=== PATIENT | male | born 1950 | race Caucasian/White ===

== ENCOUNTER 2023-09-20 08:36 | Day surgery (SDC) | payer MEDICARE, OTHER ==
[~2023-09-20] VITALS: Ht 175.3 cm; Wt 76.2 kg
[~2023-09-20 08:36] MED LIST: ALPHA LIPOIC A200 MG PO; FISH OIL 1,001000 MG PO; FLOMAX0.4 MG PO; IBLOOD GLUCOSE TEST STRIP 1 EA TEST VI PRN; LACTATED RINGER'S 1,000 ML IV SCH; LIDOCAINE HCL 1% 5 ML SDV INJ ONE; METFORMIN HCL500 MG PO; MIDAZOLAM HCL 5 MG/5 ML VIAL IV PRN; OPTIMAG 125125 MG PO; TENORMIN25 MG PO; VITAMIN D325 MC2 PO; fentaNYL citrate 100 MCG/2 ML VIAL IV PRN
[2023-09-20 08:52] VITALS: BP 173/73
[2023-09-20] MEDS ORDERED: FINASTERIDE5 MG PO (09:06)
[2023-09-20] MEDS ORDERED: fentaNYL citrate 100 MCG/2 ML VIAL ONE (09:29)
[2023-09-20] MEDS ORDERED: MIDAZOLAM HCL 5 MG/5 ML VIAL ONE (09:29)
--- NOTE | 2023-09-20 10:14 | NUR ---
09/20/23 Kori4 Idalia Milton 1008-PATIENT ARRIVED TO PACU ON 2L NC RR EVEN. PATIENT REACTIVE TO VERBAL STIMULI DROWSY LAYING LEFT LATERAL. ORIENTED TO PACU DENIES PAIN OR NAUSEA. ABDOMEN SOFT ENCOURAGED TO PASS GAS. IVF INFUSING
[2023-09-20 11:19] VITALS: BP 153/80
--- NOTE | 2023-09-21 06:20 | OR ---
[facility] [address] [place], [place] [address] Signed DATE OF OPERATION: 09/20/2023 SURGEON: Elton Wild MD PREOPERATIVE DIAGNOSES: 1. Brother with colon cancer, age 66. 2. Positive Cologuard test. 3. Weight loss of 40 pounds over three months. POSTOPERATIVE DIAGNOSES: 1. A 3 mm polyp at 6 cm, rectum. 2. Minimal internal hemorrhoids. PROCEDURE: Colonoscopy with hot biopsy. ESTIMATED BLOOD LOSS: None. INDICATIONS: Jocelyne is a 72-year-old gentleman asked to see me for his initial colonoscopy. He has recently moved to our area. He was in the [facility] in [place], [place]. We have been unable to track down those results. He told me that his brother was diagnosed and of colon cancer at age 66. He said his brother waited quite a late before he presented. Jocelyne had a positive Cologuard test recently. He thinks it is due to his natural antibiotic that he was using at that time, but he has lost at least 40 pounds over three months. Ultrasound of his abdomen in July of this year did show his previous cholecystectomy and an 8 cm left renal cyst. He has some fat in his liver. The CT scan of the chest, abdomen, and pelvis showed some pancreatic atrophy and a stone in the pancreatic duct. It confirmed the left simple renal cyst measuring around 7.7 cm. 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 His prostate gland is little swollen. Nothing unusual in the chest. He said he has no lower GI complaints. He was talking to me about fasting and he uses some type of salt water to cleanse the colon. In the office, I gave him a pamphlet on colonoscopy. We have reviewed the nature of the test. There is risk including, but not limited to gas bloating, crampy abdominal pain, bleeding, perforation requiring surgery, and missed diagnosis. We also reviewed the written instructions for a bowel prep line by line. We had gone through his medications in detail as well. He also understands the need for IV conscious sedation. He had expressed understanding and wished to proceed. Electronically Signed By: ELTON WILD MD 09/21/23 0620 PATIENT NAME: JOCELYNE FLYNN OPERATIVE REPORT DATE OF : 54 REPORT #: [id number] PHYSICIAN: ELTON WILD MD PCP: KIM MOMIN REPORT IS CONFIDENTIAL AND NOT TO BE RELEASED WITHOUT AUTHORIZATION [facility] [address] [place], [place] [address] Signed DESCRIPTION OF PROCEDURE: Jocelyne was taken into our endoscopy suite and placed in the left lateral decubitus position. He was given 100 mcg of fentanyl and 3.5 mg of Versed to cover the case. A digital rectal exam was performed. He had good sphincter tone. There were no external hemorrhoids. No masses. His prostate is a little bit indurated and swollen. The adult colonoscope was introduced and advanced all around into the cecum under direct visualization of camera with only mild abdominal compression. His prep was quite good. We could easily see the appendiceal orifice and the ileocecal valve. The scope was then slowly withdrawn. We took pictures throughout for photodocumentation. The entire colon was unremarkable. The rectum itself showed one tiny 3 mm polyp at 6 cm. It was easily removed with a hot biopsy forceps. Upon retroflexion of scope, he has minimal internal hemorrhoid columns. After this, the gas was suctioned out, colonoscope removed. Jocelyne tolerated the procedure quite well. RECOMMENDATIONS: I will see Jocelyne back in my office in 7 to 14 days to review his results. It looks like he will stay on the five year plan due to his family history. Elton Wild MD ALB/MODL /[id number] cc: Patient Chart Kim Wild MD Copies: ELTON WILD MD ~ Electronically Signed By: ELTON WILD MD 09/21/23 0620 PATIENT NAME: JOCELYNE FLYNN OPERATIVE REPORT DATE OF : 54 REPORT #: [id number] PHYSICIAN: ELTON WILD MD PCP: KIM MOMIN REPORT IS CONFIDENTIAL AND NOT TO BE RELEASED WITHOUT AUTHORIZATION
--- NOTE | 2023-09-23 11:51 | PATH ---
[facility] [address] [facility] [place], [place] [address] Signed SPECIMEN(S): A RECTAL POLYP SPECIMEN SOURCE: A. RECTAL POLYP CLINICAL HISTORY: History of screening, family colon cancer FINAL PATHOLOGIC DIAGNOSIS: Rectum, polypectomy: - Hyperplastic polyp BRP MICROSCOPIC EXAMINATION: Histologic sections of all submitted blocks are examined by light microscopy. These findings, together with the gross examination, support the pathologic diagnosis. GROSS DESCRIPTION: The specimen, labeled and designated "Loyd, rectal polyp," is received in formalin and consists of one robin soft tissue fragment, 0.2 cm. Entirely submitted in (A1). VB (under the direct supervision of a pathologist) The Gross Description was prepared using a voice recognition system. The report was reviewed for accuracy; however, sound-alike word errors, addition and/or deletions may occur. If there is any question about this report, please contact Client Services. ADDITIONAL NOTES: Immunohistochemical and/or in situ hybridization studies if performed in this case included appropriate positive controls that reacted as expected. This test was developed and its performance characteristics determined by [facility]. It has not been cleared or approved by the U.S. Food and Drug Administration. The FDA has determined that such clearance or approval is not necessary. This test is used for clinical purposes. It should not be regarded as investigational or for research. [facility] is certified under the Clinical Laboratory Improvement Amendments of 1988 (CLIA) as qualified to perform high complexity clinical laboratory testing. PATIENT NAME: JOCELYNE FLYNN PATHOLOGY DATE OF : 54 REPORT #: [id number] PHYSICIAN: MEGHA ORDONEZ PCP: DEMARCUS MOMIN REPORT IS CONFIDENTIAL AND NOT TO BE RELEASED WITHOUT AUTHORIZATION [facility] [address] [place], [place] [address] Signed PERFORMING LABORATORY: Technical component was performed by [facility], [address] [place] [address] (CLIA# [id number]). Professional interpretation was performed by [facility] [address] [address] (CLIA# [id number]). Diagnostician: Moreno Lewis MD Pathologist Electronically Signed 09/23/2023 Copies: ~ PATIENT NAME: JOCELYNE FLYNN PATHOLOGY DATE OF : 54 REPORT #: [id number] PHYSICIAN: MEGHA ORDONEZ PCP: DEMARCUS MOMIN REPORT IS CONFIDENTIAL AND NOT TO BE RELEASED WITHOUT AUTHORIZATION
== END 2023-09-20 11:25 | disposition home or self-care (01) ==
LOC: DS 08:36
PROVIDERS: ATTEND Colon & Rectal Surgery
PROC: 0DBP8ZX Excision of Rectum, Via Natural or Artificial Opening Endoscopic, Diagnostic (ICD-10-PCS; principal; 2023-09-20 09:45)
DX: K62.1 Rectal polyp (principal); E11.9 Type 2 diabetes mellitus without complications; K64.8 Other hemorrhoids; R63.4 Abnormal weight loss; Z79.84 Long term (current) use of oral hypoglycemic drugs; Z68.24 Body mass index [BMI] 24.0-24.9, adult; Z80.0 Family history of malignant neoplasm of digestive organs
CPT/HCPCS: 99153; G0500; J2250; J3010; J7121